=== PATIENT | male | born 1960 | race Caucasian/White ===

== ENCOUNTER 2025-04-02 13:17 | Outpatient (RCR) | payer MEDICARE, OTHER, SELFPAY | END 2025-04-02 23:59 | disposition home or self-care (01) | LOC: RPT 13:17 | PROVIDERS: ATTENDING PHYSICIAN Nurse Practitioner Adult Health; FAMILY PHYSICIAN Family Medicine | DX: C01 Malignant neoplasm of base of tongue (principal); Z73.6 Limitation of activities due to disability; L59.8 Other specified disorders of the skin and subcutaneous tissue related to radiation; R29.3 Abnormal posture; M62.81 Muscle weakness (generalized); Z92.3 Personal history of irradiation | CPT/HCPCS: 97140; 97163; 97530 ==

== ENCOUNTER 2025-06-03 07:18 | Outpatient (RCR) | payer MEDICARE, OTHER, SELFPAY | END 2025-06-03 23:59 | disposition home or self-care (01) | LOC: RPT 07:18 | PROVIDERS: ATTENDING PHYSICIAN Nurse Practitioner Adult Health; FAMILY PHYSICIAN Family Medicine | DX: C01 Malignant neoplasm of base of tongue (principal); Z73.6 Limitation of activities due to disability; L59.8 Other specified disorders of the skin and subcutaneous tissue related to radiation; R29.3 Abnormal posture; M62.81 Muscle weakness (generalized); Z92.3 Personal history of irradiation | CPT/HCPCS: 97112; 97140 ==